=== PATIENT | male | born 1990 | race African-American/Black ===

== ENCOUNTER 2016-11-23 08:01 | Emergency (ER) | payer BC ==
[2016-11-23 07:22] LABS: ASCORBIC ACID (UR NOT ORDER) NEG (NEG); BILIRUBIN, URINE NEGATIVE (NEG); ER URINALYSIS TAT 0 Hrs 21 Mins; KETONE, URINE NEGATIVE (NEG); LEUKOCYTE ESTERASE(NOT OR LARGE (NEG); NITRITE (URINE) NEG (NEG); WBC (NOT ORDERED) (RFLEX) 41 (0-5)
[~2016-11-23 08:01] MED LIST: [UNRECOGNIZED DRUG - REMARK]
[2016-11-23 09:24] LABS: SOURCE: MALE URINE
[2016-11-23 09:32] LABS: CHLAMYDIA TRACH PCR DETECTED (NOT DETEC)
[2016-11-23 09:33] LABS: GC PCR DETECTED (NOT DETECT)
== END 2016-11-23 08:28 | disposition home or self-care (01) ==
LOC: ER 08:01
PROVIDERS: Specialist
DX: A64 Unspecified sexually transmitted disease (principal); N34.2 Other urethritis
CPT/HCPCS: 81001; 87086; 87491; 87591; 96372; 99283; A9270-GY